=== PATIENT | female | born 1955 | race Caucasian/White ===

== ENCOUNTER 2020-07-28 07:53 | Outpatient (CLI) | payer OTHER, SELFPAY ==
--- NOTE | ~2020-07-28 | MM_ITS ---
EXAMINATION: MM screening [facility] BI w di HISTORY: Screening mammogram TECHNIQUE: Craniocaudal and mediolateral oblique 3-D tomosynthesis images were obtained and synthetic 2-D images were generated. CAD analysis was submitted and interpreted. COMPARISON: 07/26/2019, 07/19/2018, 07/07/2017 BREAST PARENCHYMAL COMPOSITION: There are scattered areas of fibroglandular density. FINDINGS: RIGHT BREAST: An asymmetry is present in the middle third of the outer breast 7.5 cm from the nipple on the craniocaudal view. LEFT BREAST: There is no evidence of suspicious mass, calcification, or architectural distortion to s uggest malignancy. There has been no significant interval change. IMPRESSION: 1. Right breast asymmetry on the craniocaudal view. 2. Additional mammographic views and possible breast ultrasound are recommended. BI-RADS Category 0: Incomplete: Needs additional imaging evaluation. Reviewed, dictated and finalized at location A. IMPRESSION: 1. Right breast asymmetry on the craniocaudal view. 2. Additional mammographic views and possible breast ultrasound are recommended . BI-RADS Category 0: Incomplete: Needs additional imaging evaluation.
== END 2020-07-28 07:54 | disposition home or self-care (01) ==
LOC: ANHIMG 07:54
PROVIDERS: PCP Family Medicine; Visit Provider Nurse Practitioner
DX: Z12.31 Encounter for screening mammogram for malignant neoplasm of breast (principal); R92.8 Other abnormal and inconclusive findings on diagnostic imaging of breast
CPT/HCPCS: 77063; 77067

== ENCOUNTER 2020-08-18 11:38 | Outpatient (CLI) | payer OTHER, SELFPAY ==
--- NOTE | ~2020-08-18 | MM_ITS ---
EXAMINATION: MM diagnostic mammo unilat RT HISTORY: Right breast asymmetry on screening mammogram TECHNIQUE: Additional 3-D tomosynthesis images of the right breast were performed and synthetic 2-D i mages were generated. CAD analysis was submitted and interpreted. COMPARISON: 07/28/2020, 07/26/2019, 07/19/2018, 07/07/2017 FINDINGS: There is a return to baseline fibroglandular appearance with spot compression in the area q uestioned on screening mammogram. No suspicious mass, calcification, or architectural distortion is i dentified. IMPRESSION: 1. No mammographic evidence of malignancy. 2. Recommend routine screening mammography in one year. BI-RADS Category 1: Negative Reviewed, dictated and finalized at location A. 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
== END 2020-08-18 11:39 | disposition home or self-care (01) ==
LOC: ANHIMG 11:41
PROVIDERS: PCP Family Medicine; Visit Provider Obstetrics & Gynecology Gynecology
DX: R92.8 Other abnormal and inconclusive findings on diagnostic imaging of breast (principal)
CPT/HCPCS: 77065

== ENCOUNTER → 2021-02-20 07:28 | Outpatient (CLI) | payer OTHER, SELFPAY ==
[2021-02-20 19:22] LABS: SARS-CoV-2 RNA PCR Negative
== END ==
PROVIDERS: PCP Family Medicine; Visit Provider Internal Medicine Gastroenterology
DX: Z01.812 Encounter for preprocedural laboratory examination (principal); Z20.822 Contact with and (suspected) exposure to COVID-19
CPT/HCPCS: C9803; U0003; U0005

== ENCOUNTER 2021-02-23 00:53 | Day surgery (SDC) | payer OTHER, SELFPAY ==
[2021-02-11 14:24] VITALS: BMI 34.4
[2021-02-23 09:41] VITALS: BP 140/87; PULSE 80; RESP 16; TEMP 36.4; O2SAT 100; BMI 35.5
[2021-02-23] MEDS: LACTATED RINGERS 1,000 ML 150 ML IV CONT (09:54)
--- NOTE | 2021-02-23 10:15 | WPDANESEPPF ---
Anes - Initial Pre Proc Eval Procedure: Operation Date: 02/23/21 10:15 Proposed Procedures p Screening Colonoscopy - Edmar Hodgson MD Date/Time: 02/23/21 10:15 Surgeon: Edmar Hodgson MD Pre Op Diagnosis: neoplasm screening, hx of colon polyps Patient Data Age: 65 Gender: F Height: 5 ft 4 in Weight: 94 kg Last Vital Signs Temp 36.4 C L 02/23/21 09:41 Pulse 80 02/23/21 09:41 Resp 16 02/23/21 09:41 BP 140/87 02/23/21 09:41 Pulse Ox 100 02/23/21 09:41 Allergies Allergy/AdvReac Type Severity Reaction Status Date / Time amphetamine Allergy Unknown Nausea Verified 02/23/21 09:36 atenolol Allergy Unknown fatigue Verified 02/23/21 09:36 lisinopril AdvReac Mild cough Verified 02/23/21 09:36 Home Medications Medication Instructions Recorded Confirmed Type aspirin 81 mg tablet,delayed 81 mg PO DAILY 09/20/19 02/23/21 History release estradiol 0.5 mg tablet 0.5 mg PO DAILY 09/20/19 02/23/21 History medroxyprogesterone 2.5 mg tablet 2.5 mg PO DAILY 09/20/19 02/23/21 History lisinopril 20 1 tablet PO DAILY #90 tablet 05/26/20 02/23/21 Rx mg-hydrochlorothiazide 25 mg tablet amlodipine 5 mg tablet See Rx Instructions .ROUTE 11/27/20 02/23/21 Rx .COMPLEX #90 tablet levothyroxine 112 mcg tablet See Rx Instructions .ROUTE 11/27/20 02/23/21 Rx .COMPLEX #90 tablet albuterol sulfate 90 mcg/actuation 2 puff INHALATION Q4-6H PRN #8.5 g 01/27/21 02/23/21 Rx aerosol inhaler cholecalciferol (vitamin D3) 75 75 mcg PO DAILY 01/27/21 02/23/21 History mcg (3,000 unit) tablet Patient hx anesthesia problems: none Family hx anesthesia problems: none PMFSH Surgical History Surgical History H/O section (~1981) History of colonoscopy (~06/10/14) History of tubal ligation Family History Family History Father Diabetes mellitus, Onset Age: 42 Hypertension, Onset Age: 42 Family history of elevated blood lipids, Onset Age: 42 Family history of coronary artery disease, Onset Age: 42 Sibling Hypertension Social History Social History Smoking status: Never smoker Alcohol intake: current Alcohol use details: occasionally Substance use: never Substance use type: does not use Living arrangements: with family Gender identity (if verbalized by the patient): Female Spiritual care concerns: No Anes - Eval Final PreProcedure Day of Procedure 02/23/21 10:15 Patient weight: obese Heart: regular rate and rhythm Lungs: clear to auscultation Airway: Mallampati scale class II Neurological: alert and oriented Last oral intake: >/= 8 hours ASA classification: II Emergent: no Anesthetic plan: proceed Anesthesia type and monitoring: general GIVS and standard monitoring Informed Consent: The patient's anesthetic plan and its attendant risks and benefits were discussed with the patient/family/POA. Questions were solicited and answers provided to the satisfaction of the patient/family/POA.
--- NOTE | 2021-02-23 10:17 | PM.HPGS ---
History of Present Illness History of Present Illness Consent: Risks, benefits, and alternatives have been discussed and questions answered. Patient agrees to proceed with procedure. Chief complaint: neoplasm screening, hx of colon polyps Narrative: Kasey Posey is a 65 year old female with colon polyps in 2013 Review of Systems Constitutional: Constitutional: Denies headache(s) and Denies weakness Eyes: Eyes: Denies blurry vision ENT: Reports Normal hearing present, Denies headache(s) and Denies neck pain Cardiovascular: Cardiovascular: Denies chest pain and Denies dyspnea Respiratory: Respiratory: Denies dyspnea Gastrointestinal: Gastrointestinal: Reports no additional gastrointestinal complaints Genitourinary: Genitourinary: Denies dysuria Musculoskeletal: Musculoskeletal: Denies neck pain Integumentary/Breasts: Skin/Breast: Denies dry skin Neurologic: Reports Normal hearing present, Denies headache(s) and Denies weakness Psychiatric: Psychiatric: Denies anxiety Endocrine: Endocrine: Denies change in body appearance Hematologic/Lymphatic: Hematologic/Lymphatic: Denies easy bleeding Allergic/Immunologic: Allergic/Immunologic: Denies urticaria PMFSH Past Medical History Medical History (Updated 02/23/21 @ 10:17 by Edmar Hodgson MD) Colon cancer screening Surgical History Surgical History H/O section (~1981) History of colonoscopy (~06/10/14) History of tubal ligation Family History Family History Father Diabetes mellitus, Onset Age: 42 Hypertension, Onset Age: 42 Family history of elevated blood lipids, Onset Age: 42 Family history of coronary artery disease, Onset Age: 42 Sibling Hypertension Social History Social History Smoking status: Never smoker Alcohol intake: current Alcohol use details: occasionally Substance use: never Substance use type: does not use Living arrangements: with family Gender identity (if verbalized by the patient): Female Spiritual care concerns: No Meds Home Medications and Allergies Home Medications Medication Instructions Recorded Confirmed Type aspirin 81 mg tablet,delayed 81 mg PO DAILY 09/20/19 02/23/21 History release estradiol 0.5 mg tablet 0.5 mg PO DAILY 09/20/19 02/23/21 History medroxyprogesterone 2.5 mg tablet 2.5 mg PO DAILY 09/20/19 02/23/21 History lisinopril 20 1 tablet PO DAILY #90 tablet 05/26/20 02/23/21 Rx mg-hydrochlorothiazide 25 mg tablet amlodipine 5 mg tablet See Rx Instructions .ROUTE 11/27/20 02/23/21 Rx .COMPLEX #90 tablet levothyroxine 112 mcg tablet See Rx Instructions .ROUTE 11/27/20 02/23/21 Rx .COMPLEX #90 tablet albuterol sulfate 90 mcg/actuation 2 puff INHALATION Q4-6H PRN #8.5 g 01/27/21 02/23/21 Rx aerosol inhaler cholecalciferol (vitamin D3) 75 75 mcg PO DAILY 01/27/21 02/23/21 History mcg (3,000 unit) tablet Allergies Allergy/AdvReac Type Severity Reaction Status Date / Time amphetamine Allergy Unknown Nausea Verified 02/23/21 09:36 atenolol Allergy Unknown fatigue Verified 02/23/21 09:36 lisinopril AdvReac Mild cough Verified 02/23/21 09:36 Vital Signs Vital Signs - 24 hr 02/23/21 09:41 Temperature 97.5 F L Pulse Rate 80 Respiratory Rate 16 Blood Pressure 140/87 Pulse Oximetry 100 Exam Const: General: comfortable and no acute distress HENMT: General nose exam: Normal nares present Eyes: General: appearance normal, both eyes and all related structures Neck: Neck: no JVD Resp: Auscultation: clear to auscultation bilaterally Cardio: Rate: regular rate Rhythm: regular rhythm GI: Inspection: non-distended GI Palp: Yes Soft to palpation Skin: General skin exam: normal color Neuro: General: gait normal Speech: normal speech Extrem:
[2021-02-23 10:39] VITALS: BP 108/62; PULSE 78; RESP 26; O2SAT 97
[2021-02-23 10:49] VITALS: BP 120/72; PULSE 69; RESP 12; O2SAT 100
[2021-02-23 10:59] VITALS: BP 114/69; PULSE 71; RESP 19; O2SAT 100
== END 2021-02-23 11:07 | disposition home or self-care (01) ==
PROVIDERS: PCP Family Medicine; Visit Provider Internal Medicine Gastroenterology
PROC: 0DJD8ZZ Inspection of Lower Intestinal Tract, Via Natural or Artificial Opening Endoscopic (ICD-10-PCS; CPT 45378; principal; 2021-02-23 10:15)
DX: Z12.11 Encounter for screening for malignant neoplasm of colon (principal); Z86.010 Personal history of colon polyps; K57.30 Diverticulosis of large intestine without perforation or abscess without bleeding; K64.8 Other hemorrhoids
CPT/HCPCS: 45378; C9803; J2704; J7120; U0003; U0005

== ENCOUNTER → 2021-06-09 10:08 | Outpatient (CLI) | payer OTHER, SELFPAY ==
--- NOTE | ~2021-06-09 | XR_ITS ---
EXAMINATION: XR chest 2V DATE: 06/09/2021 11:14 INDICATION: Chest pain unspecified TECHNIQUE: PA and lateral views of the chest are obtained. COMPARISON: 07/19/2017 FINDINGS: The lungs are free of acute opacities. A chronic right upper lobe pulmonary nodule is consi dered benign given the interval stability. There is no pleural effusion or pneumothorax. The cardiome diastinal silhouette is normal. There is moderate thoracic spondylosis. Cholecystectomy clips are not ed. IMPRESSION: 1. No acute cardiopulmonary abnormality. Reviewed, dictated and finalized at location B.
== END ==
PROVIDERS: PCP Family Medicine; Visit Provider Family Medicine
DX: R07.89 Other chest pain (principal)
CPT/HCPCS: 71046

== ENCOUNTER 2021-07-30 07:13 | Outpatient (CLI) | payer OTHER, SELFPAY ==
--- NOTE | ~2021-07-30 | MM_ITS ---
EXAMINATION: MM screening [facility] BI w di HISTORY: Screening mammogram TECHNIQUE: Craniocaudal and mediolateral oblique 3-D tomosynthesis images were obtained and synthetic 2-D images were generated. CAD analysis was submitted and interpreted. COMPARISON: 08/18/2020 right diagnostic mammogram 07/28/2020, 07/26/2019, 07/19/2018 bilateral screening mammogram examinations BREAST PARENCHYMAL COMPOSITION: There are scattered areas of fibroglandular density. FINDINGS: There is no evidence of suspicious mass, calcification, or architectural distortion to sugg est malignancy in either breast. There has been no suspicious interval change. IMPRESSION: 1. No mammographic evidence of malignancy. 2. Recommend routine screening mammography in one year. BI-RADS Category 1: Negative Reviewed, dictated and finalized at location A.
== END 2021-07-30 07:14 | disposition home or self-care (01) ==
LOC: ANHIMG 07:15
PROVIDERS: PCP Family Medicine; Visit Provider Nurse Practitioner
DX: Z12.31 Encounter for screening mammogram for malignant neoplasm of breast (principal)
CPT/HCPCS: 77063; 77067

== ENCOUNTER → 2021-08-04 03:30 | Outpatient (CLI) | payer OTHER, SELFPAY ==
[2021-08-04 18:29] LABS: SARS-CoV-2 RNA PCR Negative
== END ==
PROVIDERS: PCP Family Medicine; Visit Provider Family Medicine
DX: R09.81 Nasal congestion (principal); R05.9 Cough, unspecified; R51.9 Headache, unspecified; R53.83 Other fatigue; Z20.822 Contact with and (suspected) exposure to COVID-19
CPT/HCPCS: C9803; U0003; U0005

== ENCOUNTER → 2022-02-16 07:32 | Outpatient (CLI) | payer OTHER, SELFPAY ==
--- NOTE | ~2022-02-16 | US_ITS ---
EXAMINATION: US retroperitoneal duplex ltd DATE: 02/16/2022 11:09 CDT INDICATION: Renal insufficiency TECHNIQUE: Sonographic imaging of the kidneys was performed with a 3.5 MHz transducer. Retroperitone al duplex sonogram of the renal arteries also obtained. FINDINGS: No focal flow abnormalities are seen in the renal arteries on color Doppler. The peak syst olic velocity ranges of the right and left renal arteries and aorta are 89 cm per second, 122 cm per second, and 42 cm per second, respectively. The velocities and renal to aortic ratios are within norm al limits. IMPRESSION: 1. No Doppler evidence of renal artery stenosis. Reviewed, dictated and finalized at location A.
== END ==
PROVIDERS: PCP Family Medicine; Visit Provider Internal Medicine Endocrinology, Diabetes & Metabolism
DX: N28.9 Disorder of kidney and ureter, unspecified (principal); I34.0 Nonrheumatic mitral (valve) insufficiency
CPT/HCPCS: 93976

== ENCOUNTER 2022-03-08 13:10 | Outpatient (CLI) | payer OTHER, SELFPAY ==
--- NOTE | 2022-03-08 | ECHO_ITS ---
Patient Info Name: Kasey Posey Age: 66 years : 1955 Gender: Female Ht: 64 in Wt: 200 lbs BSA: 2.06 m2 HR: 83 bpm BP: 148 / 75 mmHg Heart Rhythm: Sinus Rhythm Technical Quality: Good Exam Date: 03/08/2022 2:04 PM Exam Location: [facility] Pulmonary Patient Status: Outpatient Admit Date: 03/08/2022 Staff Ordering Physician: PHYSICIAN NOT ON STAFF, NONSTAFF Loin Trimmer: Kimberly Castellon RDCS Attending Provider: Sheila Frank RN Exam Type: CA echo doppler color flow Study Info Indications I34.0 - Nonrheumatic mitral (valve) insufficiency Complete two-dimensional, color flow and Doppler transthoracic echocardiogram is performed. Summary 1. Complete two-dimensional, color flow and Doppler transthoracic echocardiogram is performed. 2. Left ventricular chamber dimension is normal. 3. Left ventricular systolic function is normal, estimated at 60-65%. 4. There is mildly increased left ventricular wall thickness. 5. The left ventricular diastolic function is grade I diastolic dysfunction. 6. E/e' 9 is minimally elevated. 7. Left atrial chamber dimension is moderately enlarged. 8. There is trace mitral valve regurgitation. 9. No pulmonary hypertension, estimated pulmonary arterial systolic pressure is 33 mmHg. 10. There is small circumferential pericardial effusion. Left Ventricle E/e' 9 is minimally elevated. Left ventricular chamber dimension is normal. Left ventricular systolic function is normal, estimated at 60-65%. There is mildly increased left ventricular wall thickness. The left ventricular diastolic function is grade I diastolic dysfunction. Right Ventricle Right ventricular systolic function is normal and with normal TAPSE 2.2 cm. Right ventricular chamber dimension is normal. Left Atria Left atrial chamber dimension is moderately enlarged. Right Atria Right atrial chamber dimension is normal. Aortic Valve The aortic valve is trileaflet. There is no aortic valve stenosis. There is no aortic valve regurgitation. Pulmonic Valve There is no pulmonic regurgitation. Mitral Valve There is no mitral valve stenosis. There is trace mitral valve regurgitation. Tricuspid Valve There is no tricuspid valve regurgitation. No pulmonary hypertension, estimated pulmonary arterial systolic pressure is 33 mmHg. Pericardium/Pleural There is small circumferential pericardial effusion. Inferior Vena Cava Normal inferior vena cava with >50% collapse upon inspiration consistent with normal right atrial pressure, 5 mmHg. Aorta The aortic root size at the sinus of Valsalva is normal. Left Ventricular Outflow Tract Name Value Normal LVOT 2D LVOT Diameter 1.5 cm LVOT Doppler LVOT Peak Gradient 7 mmHg LVOT Mean Gradient 3 mmHg LVOT VTI 34 cm LVOT VTI/AV VTI Ratio 0.9 LVOT Stroke Volume 57 ml LVOT CO 3.9 l/min LVOT CI 1.9 l/min/m2 Pulmonic Valve
== END 2022-03-08 13:11 | disposition home or self-care (01) ==
LOC: ANHCARD 13:12
PROVIDERS: PCP Family Medicine; Visit Provider Internal Medicine Endocrinology, Diabetes & Metabolism
DX: I34.0 Nonrheumatic mitral (valve) insufficiency (principal)
CPT/HCPCS: 93306

== ENCOUNTER 2022-09-15 08:08 | Outpatient (CLI) | payer OTHER, SELFPAY ==
--- NOTE | ~2022-09-15 | MM_ITS ---
EXAMINATION: MM screening [facility] BI w di HISTORY: Screening TECHNIQUE: Craniocaudal and mediolateral oblique 3-D tomosynthesis images were obtained and synthetic 2-D images were generated. CAD analysis was submitted and interpreted. COMPARISON: Comparison to multiple prior studies sequentially, with oldest reviewed study dated 01/2017. BREAST PARENCHYMAL COMPOSITION: There are scattered areas of fibroglandular density. FINDINGS: There is no evidence of suspicious mass, calcification, or architectural distortion to sugg est malignancy in either breast. There has been no suspicious interval change. IMPRESSION: 1. No mammographic evidence of malignancy. 2. Recommend routine screening mammography in one year. BI-RADS Category 1: Negative Reviewed, dictated and finalized at location B. [facility]
== END 2022-09-15 08:09 | disposition home or self-care (01) ==
LOC: ANHIMG 08:11
PROVIDERS: PCP Family Medicine; Visit Provider Nurse Practitioner
DX: Z12.31 Encounter for screening mammogram for malignant neoplasm of breast (principal)
CPT/HCPCS: 77063; 77067

== ENCOUNTER 2023-12-06 14:13 | Outpatient (CLI) | payer MEDICARE, SELFPAY ==
--- NOTE | ~2023-12-06 | DEXA_ITS ---
Bone Density Report Name: VASU DAO Age: 68 Sex: Female Ethnicity: White Date of : 1955 Indication: postmenopausal; screening for osteoporosis; height loss; Referring Provider: BREANNA MONTAGUE Study: Bone densitometry was performed. Exam Date: December 06, 2023 Accession number: [id number] Bone Density: Region BMD T-score Z-score Classification AP Spine(L1-L4) 1.332 2.6 4.4 Normal Femoral Neck (Left) 0.726 -1.1 0.5 Osteopenia Total Hip (Left) 0.999 0.5 1.7 Normal Femoral Neck (Right) 0.723 -1.1 0.4 Osteopenia Total Hip (Right) 0.997 0.5 1.7 Normal Total Hip Mean 0.998 0.5 1.7 Normal World Health Organization criteria for BMD impression classify patients as: Normal (T-score at or above -1.0), Osteopenia (T-score between -1.0 and -2.5), or Osteoporosis (T-score at or below -2.5). 10-year Fracture Risk(1): Major Osteoporotic Fracture 7.7% Hip Fracture 0.6% Reported Risk Factors: [place] (), Neck BMD=0.726, BMI=35.7 (1) FRAX(R) Version 3.08. Fracture probability calculated for an untreated patient. Fracture probability may be lower if the patient has received treatment. Previous Exams: Region Exam Age BMD T-score BMD Change BMD Change Date g/cm2 vs Baseline vs Previous AP Spine (L1-L4) 12/06/2023 68 1.332 2.6 0.107 (8.8%)# 0.069 (5.5%)* 07/26/2019 63 1.263 2.0 0.038 (3.1%)# 0.038 (3.1%)# 06/30/2015 59 1.225 1.6 0.000 (0.0%) 0.000 (0.0%) 06/01/2013 57 1.225 1.6 Total Hip(Left) 12/06/2023 68 0.999 0.5 0.068 (7.4%)# 0.007 (0.7%) 07/26/2019 63 0.992 0.4 0.062 (6.6%)# 0.024 (2.5%)# 06/30/2015 59 0.968 0.2 0.038 (4.1%)* 0.038 (4.1%)* 06/01/2013 57 0.931 -0.1 Total Hip(Right) 12/06/2023 68 0.997 0.5 0.043 (4.5%)# 0.010 (1.1%) 07/26/2019 63 0.987 0.4 0.032 (3.4%)# 0.050 (5.4%)# 06/30/2015 59 0.937 0.0 -0.018 (-1.9%) -0.018 (-1.9%) 06/01/2013 57 0.955 0.1 *Denotes significance at 95% confidence level, LSC for AP Spine = 0.022 g/cm2, LSC for Total Hip = 0.027 g/cm2 # Denotes dissimilar scan types or analysis methods Clinical Information Provided by Patient: Patient maximum height was 64 Menopause Age: 58 Drinks caffeinated beverages Onset of menses at age 12 Number of children 2 Impression: The patient has low bone mass, based on the Left Femoral Neck T-score. The patient has an estimated te
--- NOTE | ~2023-12-06 | MM_ITS ---
EXAMINATION: MM screening [facility]y BI w di HISTORY: Screening mammogram TECHNIQUE: Craniocaudal and mediolateral oblique 3-D tomosynthesis images were obtained and synthetic 2-D images were generated. CAD analysis was submitted and interpreted. COMPARISON: 09/15/2022, 07/30/2021 bilateral screening mammogram examinations BREAST PARENCHYMAL COMPOSITION: There are scattered areas of fibroglandular density. FINDINGS: There is no evidence of suspicious mass, calcification, or architectural distortion to sugg est malignancy in either breast. There has been no suspicious interval change. IMPRESSION: 1. No mammographic evidence of malignancy. 2. Recommend routine screening mammography in one year. BI-RADS Category 1: Negative Reviewed, dictated and finalized at location A. R KILN
== END 2023-12-06 14:14 | disposition home or self-care (01) ==
PROVIDERS: PCP Family Medicine; Visit Provider Obstetrics & Gynecology Gynecology
DX: Z12.31 Encounter for screening mammogram for malignant neoplasm of breast (principal); M85.88 Other specified disorders of bone density and structure, other site; M85.852 Other specified disorders of bone density and structure, left thigh; M85.851 Other specified disorders of bone density and structure, right thigh
CPT/HCPCS: 77063; 77067; 77080

== ENCOUNTER 2024-04-16 09:05 | Outpatient (CLI) | payer MEDICARE, SELFPAY ==
[2024-04-17 09:55] LABS: Kit Draw Collected
== END 2024-04-16 09:06 | disposition home or self-care (01) ==
LOC: ANHGOSHLAB 09:07
PROVIDERS: PCP Family Medicine; Visit Provider Nurse Practitioner
DX: E03.8 Other specified hypothyroidism (principal); E87.1 Hypo-osmolality and hyponatremia
CPT/HCPCS: 36415

== ENCOUNTER 2025-01-03 09:06 | Outpatient (CLI) | payer MEDICARE, SELFPAY ==
--- NOTE | ~2025-01-03 | MM_ITS ---
EXAMINATION: MM screening mindy BI w di HISTORY: Screening TECHNIQUE: Craniocaudal and mediolateral oblique 3-D tomosynthesis images were obtained and synthetic 2-D images were generated. CAD analysis was submitted and interpreted. COMPARISON: Comparison to multiple prior studies sequentially, with oldest reviewed study dated 07/04. BREAST PARENCHYMAL COMPOSITION: Not dense: There are scattered areas of fibroglandular density. FINDINGS: There is no evidence of suspicious mass, calcification, or architectural distortion to sugg est malignancy in either breast. There has been no suspicious interval change. IMPRESSION: 1. No mammographic evidence of malignancy. 2. Recommend routine screening mammography in one year. BI-RADS Category 1: Negative Reviewed, dictated and finalized at location A.
--- OUTSIDE RECORDS SUMMARY | 2025-01-03 09:21 | XMS_ITS | Referral Summary ---
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 Active albuterol HFA (PROVENTIL HFA,VENTOLIN HFA) 90 mcg/actuation inhaler Inhale 2 puffs every 6 (six) hours as needed for wheezing Active amLODIPine (NORVASC) 5 mg tablet Take 1 tablet (5 mg total) by mouth daily. 90 tablet 2 09/21/2018 Active metoprolol XL (TOPROL-XL) 25 mg 24 hr tablet Take 1 tablet (25 mg total) by mouth daily. 30 tablet 2 10/16/2018 Active hydroCHLOROthia zide (HYDRODIURIL) 25 mg tablet Take 1 tablet (25 mg total) by mouth daily 02/09/2022 Active losartan (COZAAR) 100 mg tablet Take 1 tablet (100 mg total) by mouth daily 02/09/2022 Active levothyroxine (Synthroid) 125 mcg tablet Take 1 tablet (125 mcg total) by mouth daily 04/06/2022 Active Active Problems Problem Noted Date Diagnosed Date Heart murmur 03/19/2022 Hypertension 03/19/2022 Thyroid disease 03/19/2022 Overview (03/19/2022): Had radioactive thyroid tx. 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 DIF GOITER NO CRISIS Postablative hypothyroidism 02/16/2014 Overview (01/07/2017): POSTABLAT HYPOTHYR NEC Precordial pain 02/20/2013 Mediastinal lymphadenopathy 07/27/2012 Lung mass 07/27/2012 Social History Tobacco Use Types Packs/Day Years Used Date Smoking Tobacco: Never Smokeless Tobacco: Never Alcohol Use Standard Drinks/Week Comments Yes 0 (1 standard drink = 0.6 oz pur e alcohol) Comments Unknown Sex and Gender Information Value Date Recorded Sex Assigned at Not on file Legal Sex Female 12:26 AM 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 Gender Identity Not on file Sexual Orientation Not on file Last Filed Vital Signs Vital Sign Reading Time Taken Comments Blood Pressure 134/70 04/07/2023 10:15 AM CDT Pulse 79 04/07/2023 10:15 AM CDT Temperature - - Respiratory Rate - - Oxygen Saturation 97% 04/07/2023 10:15 AM CDT Inhaled Oxygen Concentration - - Weight 86.2 kg (190 lb) 04/07/2023 10:15 AM CDT Height 162.6 cm (5' 4.02 ) 04/07/2023 10:15 AM C DT Body Mass Index 32.6 04/07/2023 10:15 AM CDT Plan of Treatment Not on file Insurance [facility]IC[facility] Address: [address] [address] [facility]ICARE [facility] MED[facility] Address: [address] [address] Care Teams Distillery Miller Helper Relationship Specialty Start Date End Date Angela Stauffer DO [address] [facility] [address] [place] [address] PCP - General Family Medicine 03/18/22 Abdiel Dhaliwal MD [address] [place] [address] Pediatric Intensive Physician Cardiology 03/19/22
--- OUTSIDE RECORDS SUMMARY | 2025-01-03 09:21 | XMS_ITS | Continuity of Care Document ---
Author Organization 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 [facility] [address], [place], [place], [id number], [place]. tel:[phone] Family History Family Member Type Diagnosis Age At Onset No Information Payers Payer name Insurance type Covered republican ID Authoriza tion(s) No Information Social History Type Description Quantity Date Captured Comments Sex Female Smoking Status No Information Chief Complaint And Reason For Visit No Information Reason For Referral Reason For Referral No Information History Of Present Illness Encounter Date Complaint History Of Prese nt Illness No Information Functional Status Date Functional Assessmen t No Information Instructions Date Instruction Additional Infor mation No Information Assessments Type Assessment Date No Information Patient Care Teams Name Effective Dates (start - stop) Status Members No Information
--- OUTSIDE RECORDS SUMMARY | 2025-01-03 09:21 | XMS_ITS | Clinical Summary ---
Author Organization [facility] [address] Address [address] [place] [address] Care Team Providers Care Inseam Leveler Name Role Phone Abdiel Dhaliwal MD Unavailable [phone] Angela Stauffer DO Primary Care Provider [phone] Allergies No known active allergies Medications aspirin [...] 02/20/2013 Mediastinal lymphadenopathy 07/27/2012 Lung mass 07/27/2012 Surgical History Surgery Date Site/Laterality Comments CARPAL TUNNEL RELEASE 10/03/1998 - 10/02/1999 SECTION CHOLECYSTECTOMY 10/03/1981 - 10/02/1982 Medical History Medical History Date Comments Hypertension Heart murmur Thyroid disease Had radioactive thyroid tx. Nonrheumatic tricuspid valve regurgitation Mediastinal lymphadenopathy Precordial pain Dyspnea on exertion Toxic diffuse goiter Postablative hypothyroidism Class 1 obesity without serious comorbidity in a dult Lung mass Family History Medical History Relation Name Comments Coronary artery disease Father Heart attack Father Several COPD Mother Other Other 1 No family histo ry of Aneurysm; Other Other 2 No family histo ry of Asthma; Other Other 3 No family histo ry of Hyperlipidemia; Other Other 4 No family histo ry of Renal disease; Other Other 5 No family histo ry of Stroke; Hypertension Sister 1 Mary Lou Lung cancer Sister 1 Mary Lou Diabetes type II Sister 2 Ruby Hypertension Sister 2 Ruby Relation Name Status Comments Father (Age 63) Maternal Grandfather Maternal Grandmother Mother Alive Other 1 Other 2 Other 3 Other 4 Other 5 Paternal Grandfather Paternal Grandmother Sister 1 Mary Lou Alive Sister 2 Ruby Alive Social History Tobacco Use Types Packs/Day Years Used Date Smoking Tobacco: Never Smokeless Tobacco: Never Alcohol Use Standard Drinks/Week Comments Yes 0 (1 standard drink = 0.6 oz pur e alcohol) Comments Unknown Sex and Gender Information Value Date Recorded Sex Assigned at Not on file 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 Gender Identity Not on file Sexual Orientation Not on file Obstetrics History Last Filed Vital Signs Vital Sign Reading [...] 04/07/2023 10:15 AM CDT Plan of Treatment Health Maintenance Due Date Last Done Comments Breast Cancer Screening-Mammogram 1957 Colon Cancer Screening-Colonoscopy 1957 Depression Screening 1957 Fall Risk Assessment 1957 Hepatitis C Screening 1957 Osteoporosis Screening-Bone Density Scan 1957 DTaP/Tdap/Td Vaccine (1 - Tdap) 1968 Hepatitis B Screening 1975 Pneumococcal vaccine 65+ (1 of 1 - PCV) 2007 Zoster Vaccine (1 of 2) 2007 Well Visit 65+ 2022 Covid-19 Vaccine ( season) 2024 Influenza Vaccine (#1) 2024 Insurance [facility] MEDICARE [facility] Address: [address] [address] [place] [address] [facility] MEDICARE [facility] Address: [address] [address] [place] [address] Care Teams Inseam Leveler Relationship Specialty Start Date End Date Angela Stauffer DO [address] [place] [address] PCP - General Family Medicine 03/18/22 Abdiel Dhaliwal MD [address] [place] [address] Techn[address] Cardiology 03/19/22
== END 2025-01-03 09:07 | disposition home or self-care (01) ==
PROVIDERS: PCP Family Medicine; Visit Provider Nurse Practitioner
DX: Z12.31 Encounter for screening mammogram for malignant neoplasm of breast (principal)
CPT/HCPCS: 77063; 77067

== ENCOUNTER 2025-04-18 09:11 | Emergency (ER) | payer MEDICARE, SELFPAY ==
--- OUTSIDE RECORDS SUMMARY | 2025-04-18 09:16 | XMS_ITS | Clinical Summary ---
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 Gender Identity Not on file Sexual Orientation [...] 10:15 AM CDT Height 162.6 cm (5' 4.02) 04/07/2023 10:15 AM C DT Body Mass [...] Vaccine ( season) 2024 Influenza Vaccine (#1) 2025 Insurance [facility] MEDICARE ADVANTAGE [facility] MEDICARE ADVANTAGE Care Teams Rehabilitation Services Manager Relationship Specialty Start Date End Date Angela Stauffer DO [address] [place] [address] PCP - General Family Medicine 03/18/22 Abdiel Dhaliwal MD [address] [place] [address] Pcmh Specialist Cardiology 03/19/22
--- OUTSIDE RECORDS SUMMARY | 2025-04-18 09:16 | XMS_ITS | Continuity of Care Document ---
Author Organization [facility] Address [address] [place] [address] [place] [address] Phone Care Team Providers Care Stapler Machine Name Role Phone Ian Grewal MD Unavailable Unavailable Advance Directives Directive Yes / No Effective Date File Name No Information Encounters Encounter Description Practice Location Reason(s) For Visit Diagnoses Date Provider Providers Copied on Encounter Located within [facility], [id number] [place] [address] [address], [place], [place], [id number], [place] tel:[phone] SEC Jerald HDEZ Professional No Information [address]. [address] [facility] [address], [place], [place], [id number], [place]. tel:[phone] Family History Family Member Type Diagnosis Age At Onset No Information Payers Payer name Insurance type Covered green party ID Authoriza tion(s) No Information Social History [...]
--- OUTSIDE RECORDS SUMMARY | 2025-04-18 09:16 | XMS_ITS | Referral Summary ---
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
[2025-04-18 09:19] VITALS: TEMP 36.8
--- NOTE | 2025-04-18 09:24 | ECG_ITS ---
Test Date: 2025-04-18 09:35:55 Measurements Intervals [place] Rate: 72 P: 31 HI: 156 QRS: -7 QRSD: 90 T: 51 QT: 378 QTc: 414 Interpretive Statements SINUS RHYTHM No previous ECG available for comparison Electronically Signed On 04-18-2025 14:43:53 CDT by Mannie Elliott M.D.
[2025-04-18 09:41] LABS: Hematocrit 35.3 % (37.0-47.0); Hemoglobin 11.9 g/dL (12.0-15.0); Immature Granulocyte Percent A 0.9 % (0-0.5); Lymphocytes Absolute Auto 1.43 K/mm3 (0.9-3.2); Mean Corpuscular HGB Conc 33.7 g/dl (32-36); Mean Corpuscular Hemoglobin 30.0 pg (26-34); Mean Corpuscular Volume 88.9 fl (80-100); Nucleated Red Blood Cells Absolute Auto 0.000 K/mm3 (0.0-0.012); Nucleated Red Blood Cells Perc 0.0 % (0.0-0.2); Platelet Count Result 314 k/mm3 (150-375); Red Blood Count 3.97 M/mm3 (4.2-5.4); White Blood Count 7.0 K/mm3 (4.5-10.0)
--- NOTE | 2025-04-18 09:44 | ED_ITS ---
HPI - Recheck/Abnormal Lab/Rx General Chief Complaint: Recheck/Abnormal Lab/Rx Stated Complaint: hyponatremia Time Seen by Provider: 04/18/25 09:18 Source: patient and old records reviewed Mode of arrival: ambulatory Limitations: no limitations History of Present Illness HPI narrative: Patient is a 69 y/o female, with PMH of hypertension, CKD, hypothyroidism, who presents to the ED with c/o hyponatremia. Patient reports she had routine blood work done with her primary care doctor yesterday. She was called by the office today and notified that her sodium was low at 129. She reports her sodium is typically around 130-131. Per records, patient has had normal sodium levels in recent months, but typically range 130-133. Has been as low as 129 in 2020. Patient does admit that she has been drinking a lot of water recently due to the hot weather outside. Reports intermittent right-sided chest pain over the past few weeks. Denies shortness of breath. Denies dizziness, lightheadedness, lower extremity swelling. Related Data Home Medications ?Medication ?Instructions ?Recorded ?Confirmed ?Last Taken ?Type aspirin 81 mg tablet,delayed 81 mg PO DAILY 09/20/19 02/19/25 Unknown History release estradiol 0.5 mg tablet 0.5 mg PO DAILY 09/20/19 02/19/25 Unknown History medroxyprogesterone 2.5 mg tablet 2.5 mg PO DAILY 09/20/19 02/19/25 Unknown History cetirizine 10 mg tablet (Zyrtec) 10 mg PO DAILY PRN 08/15/23 02/19/25 Unknown History cholecalciferol (vitamin D3) 50 50 mcg PO DAILY 02/19/25 02/19/25 Unknown History mcg (2,000 unit) capsule Allergies Allergy/AdvReac Type Severity Reaction Status Date / Time amphetamine Allergy Unknown Nausea Verified 04/18/25 09:23 atenolol Allergy Unknown fatigue Verified 04/18/25 09:23 lisinopril AdvReac Mild cough Verified 04/18/25 09:23 Review of Systems 2 Review of Systems: All systems reviewed & are unremarkable except as noted in HPI. All systems reviewed & are unremarkable except as noted in HPI and below PMFSH Past Medical History Medical History Thyroid disorder Mixed hyperlipidemia Colon cancer screening Surgical History Surgical History History of carpal tunnel surgery of right wrist History of cholecystectomy History of tubal ligation H/O section (~1981) History of colonoscopy (~06/10/14) Family History Family History Father Diabetes mellitus, Onset Age: 42 Hypertension, Onset Age: 42 Family history of elevated blood lipids, Onset Age: 42 Family history of coronary artery disease, Onset Age: 42 Sibling Hypertension Social History Social History Smoking status: Never smoker Second hand tobacco smoke exposure: No Alcohol intake: current Alcohol use details: occasionally drinks wine Substance use: never Substance use type: does not use Lack of Transportation: No Lack of Food: Never True Current Housing: I Have Housing Concerned About Future Housing: No Difficulty Paying Gas/Electric Bills: No Difficulty Paying for Meds: No Currently Unemployed: No Education: High School Diploma/GED Difficulty w/ Childcare or Family Care: No Living arrangements: with family Additional living arrangements comments: Occupation/Education: retired Gender identity (if verbalized by the patient): Female Spiritual care concerns: No Exam 2 Narrative: GENERAL: Well appearing, obese with BMI of 34.8, non-toxic, in no acute distress. HEAD: Normocephalic, atraumatic. RESPIRATORY: Airway patent, respirations nonlabored. Clear to auscultation bilaterally, no rales, rhonchi, wheezing. CARDIOVASCULAR: Regular rate and rhythm without murmurs, rubs, or gallops. MUSCULOSKELETAL: Moves all extremities. No gross deformities. No peripheral edema. SKIN: Warm, dry, normal color. NEURO: A&O X3. Speech clear. Cranial nerves II-XII grossly intact. Steady gait. No ataxic movements. PSYCHIATRIC: Appropriate mood and affect. Normal interaction. Course Vital Signs Vital signs: Vital Signs Temperature 98.2 F 04/18/25 09:19 Temperature 97.9 F 04/18/25 10:53 Pulse Rate 69 04/18/25 10:53 Respiratory Rate 16 04/18/25 10:53 Blood Pressure 153/70 H 04/18/25 10:53 Pulse Oximetry 99 04/18/25 10:53 MDM - Recheck/Abnormal Lab/Rx MDM Narrative Medical decision making narrative: Patient presented to ED with concern for hyponatremia of 129. Had routine outpatient labs performed yesterday. Patient reports her sodium is typically around 131. Vital signs are stable upon arrival. She is in no acute distress. Does not have any significant complaints. Per med rec, she is on hydrochlorothiazide. Laboratory studies here today are reassuring. Sodium is 131. Creatinine is stable. No significant signs of dehydration. Magnesium was borderline at 1.6. This was replaced. UA unremarkable. EKG without ischemic changes. Troponin undetectable. Discussed case with Dr. Stauffer, PCP, advised to have patient d/c HCTZ, monitor BP at home, will call patient today and try to see patient tomorrow in the office. Patient otherwise safe for d/c home. She is in agreement with plan. Given return precautions. D/C in stable condition. Medical Records Attestation: I reviewed the patient's medical records. Lab Data Attestation: I reviewed the patient's lab results. 04/18/25 09:28 04/18/25 09:28 Labs: Lab Results 04/18/25 04/18/25 Range/Units 09:28 09:44 WBC 7.0 (4.5-10.0) K/mm3 RBC 3.97 L (4.2-5.4) M/mm3 Hgb 11.9 L (12.0-15.0) g/dL Hct 35.3 L (37.0-47.0) % MCV 88.9 (80-100) fl MCH 30.0 (26-34) pg MCHC 33.7 (32-36) g/dl RDW 12.8 (11.5-14.5) % Plt Count 314 (150-375) k/mm3 MPV 9.0 (7.4-10.4) fl Immature Gran % (Auto) 0.9 H (0-0.5) % Neut % (Auto) 68.7 (45.5-73.1) % Lymph % (Auto) 20.3 (18.3-44.2) % [place] % (Auto) 6.1 (2.6-8.5) % Eos % (Auto) 2.7 (0-4.4) % Baso % (Auto) 1.3 H (0.2-1.2) % Lymph # (Auto) 1.43 (0.9-3.2) K/mm3 [place] # (Auto) 0.4 (0.1-0.6) K/mm3 Eos # (Auto) 0.2 (0-0.3) K/mm3 Baso # (Auto) 0.1 (0.0-0.1) K/mm3 Abs Immat Gran (auto) 0.06 H (0.00-0.031) K/mm3 Absolute Neuts (auto) 4.8 (1.3-6.7) K/mm3 Absolute Nucleated RBC 0.000 (0.0-0.012) K/mm3 Nucleated RBC % 0.0 (0.0-0.2) % PT 14.0 (11.1-14.7) Seconds INR 1.1 APTT 30.1 (22.3-36.8) Seconds Sodium 131 L (137-145) mmol/L Potassium 4.0 (3.4-5.0) mmol/L Chloride 99 (98-107) mmol/L Carbon Dioxide 21 L (22-30) mmol/L Anion Gap 11 (4-12) mmol/L BUN 21 H (7-17) mg/dL Creatinine 1.13 H (0.7-1.0) mg/dL Estim Creat Clear Calc 47 ml/min Estimated GFR 48 L (59 - ) Glucose 128 H (65-110) mg/dL Calcium 9.6 (8.4-10.2) mg/dL Magnesium 1.6 (1.6-2.3) mg/dL Total Bilirubin 0.6 (0.2-1.3) mg/dL AST 33 (14-36) U/L ALT 25 (6-35) U/L Alkaline Phosphatase 61 (38-126) U/L Troponin I < 0.012 (0.000-0.034) ng/mL Total Protein 8.1 (6.3-8.2) g/dL Albumin 4.6 (3.5-5.1) g/dL Lipase 96 (23-300) U/L Urine Color Yellow (Yellow) Urine Appearance Clear (Clear) Urine pH 6.0 (5.0-9.0) Ur Specific [place] 1.016 (1.001-1.035) Urine Protein Negative (Negative) mg/dL Urine Glucose (UA) Negative (Negative) mg/dL Urine Ketones Negative (Negative) mg/dL Ur Blood (Man) Negative (Negative) Urine Nitrate Negative (Negative) Urine Bilirubin Negative (Negative) Urine Urobilinogen 0.2 (<2.0) mg/dL Leukocyte Esterase Rfl Negative (Negative) NEGRITA/UL ECG Data EKG #1: Attestation: I personally reviewed and interpreted this ECG as follows: ECG completion date: 04/18/25 ECG completion time: 09:35 EKG Interpretation: normal rate (72), sinus rhythm and no ST changes Discharge Plan Discharge Clinical Impression: Chronic hyponatremia Patient Disposition: Home Condition: Stable Instructions: Antibiotic Form, Hyponatremia (ED) Additional Instructions: Stop taking your hydrochlorothiazide. Monitor your blood pressures at home and keep a recording of this. Your primary care doctor should be contacting you today to make a follow up appointment for further evaluation. Patient Language: Amharic Prescriptions: No Action cetirizine [Zyrtec] 10 mg tablet 10 mg PO DAILY PRN aspirin 81 mg tablet,delayed release (DR/EC) 81 mg PO DAILY estradiol 0.5 mg tablet 0.5 mg PO DAILY medroxyprogesterone 2.5 mg tablet 2.5 mg PO DAILY albuterol sulfate 90 mcg/actuation HFA aerosol inhaler 1 inh inhalation Q4H PRN (Reason: shortness of breath or wheezing) Qty: 8.5 0RF cholecalciferol (vitamin D3) 50 mcg (2,000 unit) capsule 50 mcg PO DAILY triamcinolone acetonide 0.1 % cream 1 applic topical BID Qty: 30 0RF amlodipine 5 mg tablet 5 mg PO DAILY Qty: 90 1RF losartan 100 mg tablet 100 mg PO DAILY Qty: 90 1RF hydrochlorothiazide 25 mg tablet 25 mg PO DAILY Qty: 90 1RF Rx Instructions: take 1/2 to one whole pill daily as needed levothyroxine [Synthroid] 125 mcg tablet See Rx Instructions .ROUTE .COMPLEX Qty: 90 1RF Dose Instruction: Take 1 tablet by mouth once daily Rx Instructions: Take 1 tablet by mouth once daily Follow-up/Referrals: Angela Stauffer DO [Primary Care Provider] - Time of Disposition: 10:55
[2025-04-18 09:51] LABS: INR 1.1; Partial Thromboplastin Time 30.1 Seconds (22.3-36.8); Prothrombin Time 14.0 Seconds (11.1-14.7)
[2025-04-18 09:55] LABS: Add Urine Microscopic? NO; Appearance Urine Clear (Clear); Glucose Urine UA Negative (Negative); Leukocyte Esterase Ur Negative LEU/UL (Negative); Nitrate Urine Negative (Negative); Specific Grav Ur 1.016 (1.001-1.035)
[2025-04-18 09:59] VITALS: BP 154/76; PULSE 77; RESP 16; O2SAT 99
[2025-04-18 10:07] LABS: Alanine Aminotransferase 25 U/L (6-35); Albumin Level 4.6 g/dL (3.5-5.1); Alkaline Phosphatase 61 U/L (38-126); Anion Gap 11 mmol/L (4-12); Aspartate Amino Transferase 33 U/L (14-36); Bilirubin,Total 0.6 mg/dL (0.2-1.3); Blood Urea Nitrogen 21 mg/dL (7-17); Calcium 9.6 mg/dL (8.4-10.2); Carbon Dioxide 21 mmol/L (22-30); Chloride 99 mmol/L (98-107); Estimated CRCL calculation 47 ml/min; Estimated Glomerular Filt Rate 48; Glucose 128 mg/dL (65-110); Lipase 96 U/L (23-300); Magnesium 1.6 mg/dL (1.6-2.3); Potassium 4.0 mmol/L (3.4-5.0); Sodium 131 mmol/L (137-145); Total Protein 8.1 g/dL (6.3-8.2)
--- OUTSIDE RECORDS SUMMARY | 2025-04-18 10:10 | XMS_ITS | Clinical Summary ---
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 [place] [address] PCP - General Family Medicine 03/18/22 Abdiel Dhaliwal MD [address] [facility] [address] [place] [address] Control Clerk Repairs Cardiology 03/19/22
--- OUTSIDE RECORDS SUMMARY | 2025-04-18 10:10 | XMS_ITS | Referral Summary ---
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
--- OUTSIDE RECORDS SUMMARY | 2025-04-18 10:10 | XMS_ITS | Continuity of Care Document ---
Author Organization [facility] Address [address] [place] [address] [place] [address] Phone Care Team Providers Care Inside Sales Territory Manager Name Role Phone Ian Grewal MD Unavailable Unavailable Advance Directives Directive Yes / No Effective Date File Name No Information Encounters Encounter Description Practice Location Reason(s) For Visit Diagnoses Date Provider Providers Copied on Encounter [facility], [address] [place] [address] [address], [place], [place], [id number], [place] tel:[phone] SEC Jerald HDEZ Professional No Information [address]. [address] [facility] [address], [place], [place], [address], [place]. tel:[phone] Family History Family Member Type Diagnosis Age At Onset No Information Payers Payer name Insurance type Covered libertarian ID Authoriza tion(s) No Information Social History [...]
[2025-04-18 10:14] LABS: Troponin I < 0.012 ng/mL (0.000-0.034)
[2025-04-18] MEDS: MAGNESIUM SULF 2 GM/WATER 50ML 2 GM/50 ML BAG IVPB (10:42)
[2025-04-18 10:53] VITALS: BP 153/70; PULSE 69; RESP 16; TEMP 36.6; O2SAT 99
== END 2025-04-18 11:39 | disposition home or self-care (01) ==
PROVIDERS: Emergency Provider Physician Assistant; PCP Family Medicine
DX: I12.9 Hypertensive chronic kidney disease with stage 1 through stage 4 chronic kidney disease, or unspecified chronic kidney disease (principal); N18.9 Chronic kidney disease, unspecified; E03.9 Hypothyroidism, unspecified; E78.2 Mixed hyperlipidemia; Z90.49 Acquired absence of other specified parts of digestive tract
CPT/HCPCS: 36415; 80053; 81003; 83690; 83735; 84484; 85025; 85610; 85730; 93005; 96365; 99284; J3475